=== PATIENT | male | born 1995 | race Hispanic/Latino ===

== ENCOUNTER 2017-11-04 16:07 | Emergency (ER) | payer BC, OTHER ==
[2017-11-04 16:14] VITALS: BP 132/59; PULSE 81; RESP 16; TEMP 98.5; O2SAT 100
[2017-11-04] MEDS ORDERED: Naproxen 500 MG TAB PO ONE ×2 (16:29→17:04)
--- NOTE | 2017-11-04 17:10 | ED PDOC ---
HPI: General Adult Time Seen by Provider: 11/04/17 16:18 Chief Complaint (Nursing): Lower Extremity Problem/Injury History Per: Patient History/Exam Limitations: no limitations Onset/Duration Of Symptoms: Days (x today) Current Symptoms Are (Timing): Still Present Additional Complaint(s): 22-year-old male presents to the ED with left foot injury and b/l wrist injury. 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 Denies head injuy, back pain, abdominal pain, loss of consciousness or dizziness. PMD: No Family Provider Past Medical History Reviewed: Historical Data, Nursing Documentation, Vital Signs Vital Signs: Last Vital Signs Temp 98.5 F 11/04/17 16:11 Pulse 81 11/04/17 16:11 Resp 16 11/04/17 16:11 BP 132/59 L 11/04/17 16:11 Pulse Ox 100 11/04/17 18:52 - Medical History PMH: No Chronic Diseases - Surgical History Surgical History: No Surg Hx - Family History Family History: States: Unknown Family Hx - Home Medications Home Medications: Ambulatory Orders Medication Instructions Recorded Naproxen [Naprosyn] 500 mg PO BID PRN #10 tab 11/04/17 - Allergies Allergies/Adverse Reactions: Allergies Allergy/AdvReac Type Severity Reaction Status Date / Time No Known Allergies Allergy Verified 11/04/17 16:11 Review of Systems ROS Statement: Except As Marked, All Systems Reviewed And Found Negative Gastrointestinal: Negative for: Abdominal Pain Musculoskeletal: Positive for: Foot Pain (left). Negative for: Back Pain Neurological: Negative for: Dizziness, Other (loss of consciousness) Physical Exam - Reviewed Nursing Documentation Reviewed: Yes Vital Signs Reviewed: Yes - Physical Exam Pulses-Dorsalis Pedis (L): 2+ Pulses-Radial (L): 2+ Pulses-Radial (R): 2+ Extremity: Positive for: Capillary Refill (less than 2 seconds), Other ( Bilateral wrist: (+) minimal tenderness, (-) swelling, (-) deformity. Left Foot : (+) mild tenderness on plantar surface, (-) heel tenderness, (-) ankle tenderness) - ECG O2 Sat by Pulse Oximetry: 100 (RA) Pulse Ox Interpretation: Normal Medical Decision Making Medical Decision Making: Time: 16:29 Impression(s): b/l wrist injury and foot injury Plan: - b/l wrist X-Ray - Naproxen 500 mg PO - Left Ankle X-Ray - Left Foot X-Ray Time: 17:51 b/l wrist X-Ray FINDINGS: BONES: No acute fracture or destructive bony lesion identified, bilateral wrists. The visualized distal radius and ulna and proximal metacarpal bones appear intact as well. JOINT SPACES: No subluxation or dislocation bilaterally. SOFT TISSUES: Right Wrist: Normal. Left Wrist: Normal. OTHER FINDINGS: None. IMPRESSION: Unremarkable lateral wrist radiograph series. Time: 18:35 Left Foot X-Ray FINDINGS: BONES: Normal. No fracture. JOINTS: Normal. SOFT TISSUES: Normal. OTHER FINDINGS: None. IMPRESSION: Normal left foot radiographs. Time: 18:36 Left Ankle X-Ray FINDINGS: BONES: Normal. No fracture. JOINTS: Normal. No osteoarthritis. Ankle mortise maintained. Talar dome intact SOFT TISSUES: Normal. OTHER FINDINGS: None. IMPRESSION: Normal left ankle radiographs. Upon provider evaluation patient is medically stable, and requires no further treatment in the ED at this time. Patient will be discharged with Rx for Naprosyn. Counseling was provided and all questions were answered regarding diagnosis and need for follow up with [facility] for further evaluation. There is agreement to discharge plan. Return if symptoms persist or worsen. Scribe Attestation: Documented by Francisco Wisdom, acting as a scribe for Henry Sanchez PA-C Provider Scribe Attestation: All medical record entries made by the Scribe were at my direction and personally dictated by me. I have reviewed the chart and agree that the record accurately reflects my personal performance of the history, physical exam, medical decision making, and the department course for this patient. I have also personally directed, reviewed, and agree with the discharge instructions and disposition. Disposition - Clinical Impression Clinical Impression: Wrist sprain, Foot sprain - Patient ED Disposition Is Patient to be Admitted: No - Disposition Referrals: [facility] [Outside] [facility] [Outside] Disposition: Routine/Home Disposition Time: 18:44 Condition: STABLE Additional Instructions: Follow up with [facility] for further evaluation. Return to ED immediately if symptoms worsen. Prescriptions: Naproxen [Naprosyn] 500 mg PO BID PRN #10 tab PRN Reason: Pain Instructions: Wrist Sprain (DC), Foot Sprain (DC) Forms: [facility] ([place]), [facility] ED School/Work Excuse Print Language: ESTONIAN
--- NOTE | 2017-11-04 17:53 | RAD ---
PROCEDURE: Bilateral Wrists Radiographs. HISTORY: trauma COMPARISON: None. FINDINGS: BONES: No acute fracture or destructive bony lesion identified, bilateral wrists. The visualized distal radius and ulna and proximal metacarpal bones appear intact as well. JOINT SPACES: No subluxation or dislocation bilaterally. . SOFT TISSUES: Right Wrist: Normal. Left Wrist: Normal. OTHER FINDINGS: None. IMPRESSION: Unremarkable lateral wrist radiograph series.
--- NOTE | 2017-11-04 18:37 | RAD ---
PROCEDURE: Left Foot Radiographs. HISTORY: Posttraumatic ankle pain COMPARISON: November 04, 2017. Left ankle reported separately FINDINGS: BONES: Normal. No fracture. JOINTS: Normal. SOFT TISSUES: Normal. OTHER FINDINGS: None. IMPRESSION: Normal left foot radiographs.
--- NOTE | 2017-11-04 18:37 | RAD ---
PROCEDURE: Left Ankle Radiographs. HISTORY: trauma COMPARISON: None FINDINGS: BONES: Normal. No fracture. JOINTS: Normal. No osteoarthritis. Ankle mortise maintained. Talar dome intact SOFT TISSUES: Normal. OTHER FINDINGS: None. IMPRESSION: Normal left ankle radiographs.
== END 2017-11-04 18:45 | disposition home or self-care (01) ==
LOC: H.ER 16:07
DX: S99.922A Unspecified injury of left foot, initial encounter (principal); M25.531 Pain in right wrist; M25.552 Pain in left hip; W19.XXXA Unspecified fall, initial encounter; Y92.89 Other specified places as the place of occurrence of the external cause